=== PATIENT | male | born 1965 | race Caucasian/White ===

== ENCOUNTER 2024-04-04 11:37 | Emergency (ER) | payer OTHER ==
[2024-04-04 11:54] VITALS: TEMP 98
--- NOTE | 2024-04-04 12:13 | ERPHSYRPT ---
- History of Present Illness Time Seen by Provider: 04/04/24 12:00 Source: patient Exam Limitations: no limitations Patient Subjective Stated Complaint: C/O laceration to left hand second digit. Patient states he was using a table saw and it cut his finger. Triage Nursing Assessment: Patient ambulated back to ER without difficulties. He is alert and oriented. Bandage removed from left hand, 2nd digit. An uneven laceration is present. Laceration goes across entire anterior portion of finger. Approc 4cm X 1cm with active bleeding. Cleansed with hibiclens and sterile water. Physician History: 59-year-old male presents to our ED for further evaluation of laceration to his left index finger. Patient states he was using a table saw and injured his fingers prior to arrival. There is a 4 cm laceration at the left index finger between the PIP and DIP joint. Patient unable to flex his left index finger. He is right-hand dominant. Injury occurred just prior to arrival. Tetanus is not up-to-date. No other injuries reported. Pain described as an ache that is localized. No radiation. Pain worse with movement and palpation. Pain improved with rest. Patient voices no other complaints or concerns at this gurinder e. Portions of this note were created with voice recognition technology. There may be grammatical, spelling, punctuation or sound alike errors Timing/Duration: today Severity: moderate Modifying Factors: Improves With: movement Associated Symptoms: denies symptoms Allergies/Adverse Reactions: No Known Drug Allergies Allergy (Verified 04/04/24 11:44) Home Medications: Allopurinol 300 mg [Zyloprim 300 mg] 300 mg PO DAILY 04/04/24 [History] Atorvastatin Calcium [Lipitor 20MG Tablet] 20 mg PO HS 04/04/24 [History] Celecoxib 100 mg [celeBREX 100 MG] 200 mg PO BID 04/04/24 [History] Losartan Potassium [Cozaar] 100 mg PO DAILY 04/04/24 [History] Sildenafil Citrate [Viagra] 100 mg PO CLARIFY 04/04/24 [History] Hx Tetanus, Diphtheria Vaccination/Date Given: (Maybe not tetanus) Immunizations Up to Date: Yes Travel Risk - International Travel Have you traveled outside of the country in past 3 weeks: No - Emerging Infectious Disease Are you exhibiting symptoms associated with any current EIDs: No - Review of Systems Constitutional: No Symptoms Eyes: No Symptoms Ears, Nose, & Throat: No Symptoms Respiratory: No Symptoms Cardiac: No Symptoms Abdominal/Gastrointestinal: No Symptoms Genitourinary Symptoms: No Symptoms Musculoskeletal: No Symptoms Skin: No Symptoms Neurological: No Symptoms Psychological: No Symptoms Endocrine: No Symptoms Hematologic/Lymphatic: No Symptoms Immunological/Allergic: No Symptoms - Past Medical History Pertinent Past Medical History: Yes Cardiac History: High Cholesterol, Hypertension Other Medical History: Gout - Past Surgical History Past Surgical History: Yes Gastrointestinal: Appendectomy Other Surgical History: left elbow, carpal tunnel, trigger release, ulnar nerve relocation - Social History Smoking Status: Never smoker Exposure to second hand smoke: No Drug Use: none - Social Determinants of Health Will the patient participate in the screening: Yes Do you worry about a steady place to live?: No Do you have any problems with any of the following?: No known problems In the past 12 months,have you had to go without utilities?: No Transportation Issues: No Has anyone in your support network made you feel unsafe?: No Have you or anyone in your house had to go without enough: No - Nursing Vital Signs Nursing Vital Signs: Initial Vital Signs Pulse Rate 70 04/04/24 11:43 Respiratory Rate 18 04/04/24 11:43 Blood Pressure 143/94 04/04/24 11:43 O2 Sat by Pulse Oximetry 96 04/04/24 11:43 Pain Scale Pain Intensity 0 - Physical Exam General Appearance: no apparent distress, alert Eye Exam: PERRL/EOMI, eyes nml inspection Ears, Nose, Throat Exam: normal ENT inspection Neck Exam: normal inspection, full range of motion Respiratory Exam: airway intact, No respiratory distress Cardiovascular Exam: regular rate/rhythm, normal peripheral pulses Gastrointestinal/Abdomen Exam: soft, normal bowel sounds, No tenderness, No mass Back Exam: normal inspection, normal range of motion, No CVA tenderness, No vertebral tenderness Extremity Exam: normal inspection, normal range of motion, pelvis stable, other (Left index finger with a 4 cm laceration. The involved digit is neurovascular tact distally compartments are soft cap refill less than 2 seconds.) Neurologic Exam: alert, oriented x 3, cooperative, normal mood/affect, sensation nml, No motor deficits Skin Exam: normal color, warm, dry, No rash Lymphatic Exam: No adenopathy SpO2 Interpretation: normal SpO2: 98 O2 Delivery: Room Air Procedures - Laceration/Wound Repair Left Finger Time of Procedure: 13:30 Wound Location: Left Wound Length (cm): 4 Wound's Depth, Shape: stellate Wound Explored: clean Irrigated: Yes Hibiclens Prep: Yes Anesthesia: 1% Lidocaine Volume Anesthetic (ccs): 4 Wound Debrided: No debridement indicated or necessary Suture Size/Type: 5-0, ethilon Number of Sutures: 5 Layer Closure?: No Sterile Dressing Applied?: Yes Splint Applied?: Yes Sling Applied?: Yes - Course Nursing assessment & vital signs reviewed: Yes - Radiology Exams Other X-ray Interpretation: Teleradiologist Report (Cortical fracture base of middle phalanx) Ordered Tests: Medication Summary Discontinued Medications Generic Name Dose Route Start Last Admin Trade Name Freq PRN Reason Stop Dose Admin Hydrocodone Bitart/Acetaminophen 1 tab 04/04/24 12:14 04/04/24 12:22 Hydrocodone/Apap 5/325 1 Tab Tablet PO 04/04/24 12:15 1 tab STAT ONE Administration Hydrocodone Bitart/Acetaminophen Confirm 04/04/24 12:16 Hydrocodone/Apap 5/325 1 Tab Tablet Administered 04/04/24 12:17 Dose 1 tab .ROUTE .STK-MED ONE Hydrocodone Bitart/Acetaminophen 4 tab 04/04/24 13:53 04/04/24 13:55 Hydrocodone/Apap 5/325 1 Tab Tablet PO 04/04/24 13:54 4 tab SENT HOME W/ PATIENT ONE Administration Hydrocodone Bitart/Acetaminophen Confirm 04/04/24 13:53 Hydrocodone/Apap 5/325 1 Tab Tablet Administered 04/04/24 13:54 Dose 4 tab .ROUTE .STK-MED ONE Diphtheria/Tetanus/Acell Pertussis 0.5 ml 04/04/24 11:46 04/04/24 12:23 Tdap --Diph,Pertuss(Acell),Tet Vac/Pf 0.5 Ml Vial IM 04/04/24 11:47 0.5 ml .ONCE ONE Administration Diphtheria/Tetanus/Acell Pertussis Confirm 04/04/24 12:17 Tdap --Diph,Pertuss(Acell),Tet Vac/Pf 0.5 Ml Vial Administered 04/04/24 12:18 Dose 0.5 ml IM .STK-MED ONE Cefazolin Sodium/Dextrose 1 gm in 50 mls @ 100 mls/hr 04/04/24 12:47 04/04/24 13:46 Kefzol 1 Gm/50 Ml Premix IV 04/04/24 13:16 Infused STAT STA Infusion Cefazolin Sodium/Dextrose Confirm 04/04/24 13:14 Kefzol 1 Gm/50 Ml Premix Administered 04/04/24 13:15 Dose 1 gm in 50 mls @ ud IV .STK-MED ONE Lidocaine HCl Confirm 04/04/24 12:50 Lidocaine Hcl 1% 20 Ml Mdv 20 Ml Ml Administered 04/04/24 12:51 Dose 4 ml .ROUTE .STK-MED ONE Lidocaine HCl 4 ml 04/04/24 12:53 04/04/24 12:54 Lidocaine Hcl 1% 20 Ml Mdv 20 Ml Ml IJ 04/04/24 12:54 4 ml STAT ONE Administration - Progress Progress: improved Progress Note: Case discussed with Dr. Archer. He advised irrigation, a gram of Ancef, Keflex for home wound soft tissue approximation Mariusz tape with some flexion of the finger. Splint applied. In office follow-up tomorrow. Finger irrigated. 1 g of Ancef infused. 5 simple interrupted sutures placed to approximate the soft tissue. Patient neurovascular intact distally post procedure. Splint applied. Patient neurovascular tact distally post splint application. Portions of this note were created with voice recognition technology. There may be grammatical, spelling, punctuation or sound alike errors Complexity problem addressed is moderate acute complicated. No critical care time. Complex of data reviewed and analyzed is moderate. Test ordered chest reviewed results analyzed and correlated clinically with history and physical exam. Risk of complication and or risk of morbidity/mortality of patient management is moderate. Antibiotic prescription forwarded to patient's pharmacy. Vital stable. Time spent to discharge patient is approximately 15 minutes. Plan of care established for shared decision making. No social determinants of health present impede follow-up. Portions of this note were created with voice recognition technology. There may be grammatical, spelling, punctuation or sound alike errors 04/04/24 13:32 Counseled pt/family regarding: diagnosis, need for follow-up, rad results - Departure Departure Disposition: Home Clinical Impression: Open fracture, Laceration Condition: Stable Critical Care Time: No Referrals: [facility]OS[facility],'[facility] [Primary Care Provider] - Follow up/PCP as directed OSWALDO ARCHER [NON-STAFF PHY W/O PRIVILEGES] - Follow up/PCP as directed Instructions: Finger Fracture ED, Wound Care ED Additional Instructions: Discharge/Care Plan LETTY URIBE was seen on 04/04/24 in the Emergency Room. The patient was counseled regarding Diagnosis,Lab results, Imaging studies, need for follow up and when to return to the Emergency Room. Prescriptions given: Discharge Note I have spoken with the patient and/or caregivers. I have explained the patient's condition, diagnosis and treatment plan based on the information available to me at this time. I have answered the patient's and/or caregiver's questions and addressed any concerns. The patient and/or caregivers have as good understanding of the patient's diagnosis, condition and treatment plan as can be expected at this point. The vital signs have been stable. The patient's condition is stable and appropriate for discharge from the emergency department. The patient will pursue further outpatient evaluation with the primary care physician or other designated or consulting physician as outlined in the discharge instructions. The patient and/or caregivers are agreeable to this plan of care and follow-up instructions have been explained in detail. The patient and/or caregivers have received these instruction. The patient/and or caregivers are aware that any significant change in condition or worsening of symptoms should prompt an immediate return to this or the closest emergency department or call 911. Prescriptions: Cephalexin Mh 500 mg [Keflex 500 mg] 500 mg PO TID #21 cap
[2024-04-04] MEDS ORDERED: NORCO 5/325 MG ONE ×2 (12:16→13:53)
[2024-04-04] MEDS ORDERED: Adacel Vial IM ONE (12:17)
[2024-04-04] MEDS: NORCO 5/325 MG PO ONE ×2 (12:22→13:55)
[2024-04-04] MEDS: Adacel Vial IM ONE (12:23)
--- NOTE | 2024-04-04 12:38 | XRAY ---
Indication: Laceration. Comparison: None 3 view left 2nd finger demonstrates cortical fracture base middle phalanx anterolateral aspect with overlying punctate fracture fragments and soft tissue swelling/laceration.
[2024-04-04 12:48] VITALS: O2SAT 98
[2024-04-04] MEDS ORDERED: XYLOCAINE 1% HCL 20 ML MDV ONE (12:50)
[2024-04-04] MEDS: XYLOCAINE 1% HCL 20 ML MDV IJ ONE (12:54)
[2024-04-04] MEDS ORDERED: KEFZOL 1 GM/50 ML PREMIX** 1 GM/50 ML IVPB IV ONE (13:14)
[2024-04-04] MEDS: KEFZOL 1 GM/50 ML PREMIX** 1 GM/50 ML IVPB IV STA (13:15)
[2024-04-04 13:53] VITALS: BP 149/94; PULSE 84; RESP 18
== END 2024-04-04 14:00 | disposition home or self-care (01) ==
LOC: ED 11:37
DX: S62.621B Displaced fracture of middle phalanx of left index finger, initial encounter for open fracture (principal); W31.2XXA Contact with powered woodworking and forming machines, initial encounter; E78.5 Hyperlipidemia, unspecified; I10 Essential (primary) hypertension; Z79.899 Other long term (current) drug therapy; Z23 Encounter for immunization
CPT/HCPCS: 12002; 36000; 73140; 90471; 90715; 96365; 99284; J0690; A9270-GY